=== PATIENT | male | born 1980 | race Caucasian/White ===

== ENCOUNTER 2018-10-22 19:55 | Observation (INO) ==
[2018-10-22 20:28] LABS: Basophils # 0.1 10*3/uL (0.0-0.2); Basophils % 0.7 % (0.0-0.8); Eosinophils # 0.2 10*3/uL (0.0-0.87); Eosinophils % 2.9 % (0.00-10.9); Hematocrit 41.4 VOL% (42.0-52.0); Hemoglobin 14.4 GM/DL (14.0-18.0); Immature Granulocytes % 0.5 %; Immature Granulocytes Absolute 0.04 #; Lymphocytes % 37.5 % (21.2-54.2); Mean Corpuscular HGB Conc 34.8 GM/DL (32-36); Mean Corpuscular Hemoglobin 30 PG (27-34); Mean Platelet Volume 9.2 FL (9.6-12.0); Monocytes # 0.6 10*3/uL (0.11-0.8); Monocytes % 7.3 % (1.7-12.7); Neutrophils # 4.1 10*3/uL (1.4-7.4); Neutrophils % 51.1 % (38.7-73.9); Platelet Count 270 T/CUMM (130-400); Red Blood Count 4.87 MC/CUMM (3.8-5.5); Red Cell Distribution Width 12.1 % (9.3-17.3)
[2018-10-22 20:37] LABS: INR 0.9
[2018-10-22 20:57] LABS: Bilirubin,Total 0.9 MG/DL (0.2-1.0); Calcium 8.6 MG/DL (8.5-10.1); Osmolality,Calculated 278.4 MOS/KG (273-304); Potassium 3.7 MMOL/L (3.5-5.1); Total Protein 6.8 G/DL (6.4-8.3)
[2018-10-22 21:55] LABS: Apearance,Urine CLEAR (Clear); Bilirubin,Urine Negative (Negative); Blood, Urine Negative (Negative); Glucose,Urine (UA) Negative (Negative); Ketones,Urine Negative (Negative); Mucus,Urine Occasional /LPF (Occasional); Nitrite,Urine Negative (Negative); Protein,Urine Negative; RBC,Urine 1 /HPF (0-4); Urine Color Yellow (Yellow); Urine Specific Gravity 1.025 (1.001-1.035); WBC,Urine <1 /HPF (0-6)
[2018-10-22 22:11] LABS: Barbiturates Screen,Urine Negative (Negative); Benzodiazepines Screen,Urine Negative (Negative); Cannabinoid Screen,Urine Negative (Negative); Opiate Screen,Urine Negative (Negative); Phencyclidine Screen,Urine Negative (Negative)
[2018-10-22] MEDS ORDERED: ONDANSETRON 4 MG/2 ML VIAL IV PRN (23:43)
[2018-10-22] MEDS ORDERED: DOCUSATE SODIUM 100 MG CAPSULE PO PRN (23:43)
[2018-10-22] MEDS ORDERED: ACETAMINOPHEN 325 MG TABLET PO PRN (23:43)
[2018-10-22] MEDS ORDERED: MORPHINE 4 MG/1 ML VIAL IV PRN (23:43)
[2018-10-22] MEDS ORDERED: NITROGLYCERIN SL 0.4 MG TABLET SL PRN (23:59)
[2018-10-23] MEDS ORDERED: INFLUENZA VIRUS VACCINE 0.5 ML SYRINGE IM ONE (01:06)
[2018-10-23 05:09] LABS: Basophils # 0.1 10*3/uL (0.0-0.2); Basophils % 1.1 % (0.0-0.8); Eosinophils # 0.2 10*3/uL (0.0-0.87); Eosinophils % 2.7 % (0.00-10.9); Hematocrit 40.9 VOL% (42.0-52.0); Immature Granulocytes % 1.1 %; Immature Granulocytes Absolute 0.08 #; Lymphocytes # 2.7 10*3/uL (1.4-4.0); Lymphocytes % 37.3 % (21.2-54.2); Mean Corpuscular HGB Conc 34.2 GM/DL (32-36); Mean Corpuscular Hemoglobin 29 PG (27-34); Mean Corpuscular Volume 85.4 FL (87-102); Mean Platelet Volume 9.2 FL (9.6-12.0); Monocytes # 0.7 10*3/uL (0.11-0.8); Monocytes % 10.3 % (1.7-12.7); Neutrophils # 3.4 10*3/uL (1.4-7.4); Neutrophils % 47.5 % (38.7-73.9); Platelet Count 246 T/CUMM (130-400); Red Blood Count 4.79 MC/CUMM (3.8-5.5); Red Cell Distribution Width 12.4 % (9.3-17.3); White Blood Count 7.2 T/CUMM (4-12)
[2018-10-23] MEDS: ENOXAPARIN 120 MG/0.8 ML SYRINGE SUBCUT SCH ×2 (05:31→13:22)
[2018-10-23 05:52] LABS: Calcium 8.6 MG/DL (8.5-10.1); Osmolality,Calculated 280.3 MOS/KG (273-304); Potassium 3.9 MMOL/L (3.5-5.1); Risk Ratio 3.27; Thyroid Stimulating Hormone 2.15 uIU/ml (0.358-3.74)
[2018-10-23] MEDS ORDERED: PANTOPRAZOLE 40 MG TABLET PO SCH (09:00)
[2018-10-23] MEDS ORDERED: ASPIRIN EC 81 MG TABLET PO SCH (09:00)
[2018-10-23] MEDS ORDERED: ENOXAPARIN 40 MG/0.4 ML SYRINGE SUBCUT SCH (13:30)
[2018-10-23 15:58] VITALS: BP 127/81
== END 2018-10-23 16:17 | disposition home or self-care (01) ==
LOC: N.EDINP 19:55 → N.ED 19:55 → N.TELES 10-23 00:08
PROVIDERS: ADMIT Family Medicine; ATTEND Family Medicine